=== PATIENT | female | born 1985 | race Caucasian/White ===

== ENCOUNTER 2017-10-15 21:18 | Emergency (ER) | payer MEDICAID ==
[2017-10-15] MEDS: LIDOCAINE/MYLANTA 40 ML BTL PO (23:50)
[2017-10-15] MEDS: IBUPROFEN 600 MG TAB PO (23:50)
[2017-10-16 00:23] LABS: ADD MAN DIFF? NO
[2017-10-16 00:25] LABS: BASOPHILS % 0.4 % (0.0-2.0); EOSINOPHILS # 0.2 10^3/ul (0.0-0.5); EOSINOPHILS % 1.8 % (0.0-7.0); HEMATOCRIT 36.6 % (37.0-47.0); HEMOGLOBIN 12.4 g/dl (12.0-16.0); IMMATURE GRANS #M 0.02 10^3/ul; IMMATURE GRANS % (M) 0.2 %; LYMPHOCYTES # 3.3 10^3/ul (0.8-2.9); LYMPHOCYTES % 33.4 % (15.0-51.0); MEAN CORPUSCULAR HGB CONC 33.9 g/dl (32.0-37.0); MEAN CORPUSCULAR VOLUME 88.4 fl (82.0-101.0); MEAN PLATELET VOLUME 10.3 fl (7.4-10.4); MONOCYTE # 0.7 10^3/ul (0.3-0.9); MONOCYTES % 7.4 % (0.0-11.0); NEUTROPHIL # 5.7 10^3/ul (1.6-7.5); NEUTROPHILS % 56.8 % (39.0-77.0); PLATELET COUNT 381 10^3/UL (140-415); RED BLOOD COUNT 4.14 10^6/ul (4.20-5.40); RED CELL DISTRIBUTION WIDTH 13.1 % (11.5-14.5)
[2017-10-16] MEDS: ONDANSETRON 4 MG INJ IV (00:27)
[2017-10-16] MEDS: SOD CHLORIDE 0.9% 1,000 ML IV (00:27)
[2017-10-16 00:43] LABS: URINE BLOOD (Dip) POC Trace-intact (NEGATIVE); URINE GLUCOSE (Dip) POC Negative (NEGATIVE); URINE KETONES (Dip) POC Negative (NEGATIVE); URINE LEUKOCYTE EST (Dip) POC Trace (NEGATIVE); URINE NITRITE (Dip) POC Negative (NEGATIVE); URINE TOTAL PROTEIN POC Negative (NEGATIVE)
[2017-10-16 00:54] LABS: ALANINE AMINOTRANSFERASE 19 IU/L (13-69); ALBUMIN 4.4 g/dl (3.3-4.9); ALBUMIN/GLOBULIN RATIO 1.15; ALKALINE PHOSPHATASE 87 IU/L (42-121); ANION GAP 14 (8-16); ASPARTATE AMINO TRANSFERASE 24 IU/L (15-46); BILIRUBIN,INDIRECT 0.1 mg/dl (0-1.1); BILIRUBIN,TOTAL 0.1 mg/dl (0.2-1.3); BLOOD UREA NITROGEN 13 mg/dl (7-20); CALCIUM 9.6 mg/dl (8.4-10.2); CARBON DIOXIDE 23 mmol/L (21-31); CHLORIDE 109 mmol/L (97-110); CREATININE 0.61 mg/dl (0.44-1.00); GLUCOSE 91 mg/dl (70-220); LIPASE 75 U/L (23-300); SODIUM 142 mmol/L (135-144); TOTAL PROTEIN 8.2 g/dl (6.1-8.1)
== END 2017-10-16 01:27 | disposition home or self-care (01) ==
LOC: FTE 21:18
DX: N30.01 Acute cystitis with hematuria (principal)
CPT/HCPCS: 80053; 81003; 81025; 83690; 85025; 87880; 96374; 99284-25

== ENCOUNTER 2017-10-19 23:47 | Emergency (ER) | payer MEDICAID | END 2017-10-20 03:19 | disposition home or self-care (01) | LOC: FTE 23:47 | DX: R21 Rash and other nonspecific skin eruption (principal); T36.1X5A Adverse effect of cephalosporins and other beta-lactam antibiotics, initial encounter | CPT/HCPCS: 99284; Z7502 ==

== ENCOUNTER 2018-02-20 05:46 | Emergency (ER) | payer SELFPAY, MEDICAID ==
[2018-02-20] MEDS: DIAZEPAM 5 MG TAB PO (06:52)
[2018-02-20] MEDS: KETOROLAC 30 MG INJ IM (06:53)
== END 2018-02-20 08:14 | disposition home or self-care (01) ==
LOC: FTE 05:46
DX: M54.41 Lumbago with sciatica, right side (principal)
CPT/HCPCS: 72100; 81025; 96372; 99284-25